=== PATIENT | male | born 1945 | race Caucasian/White ===

== ENCOUNTER 2018-07-17 18:04 | Observation (INO) ==
[2018-07-17] MEDS ORDERED: Ipratropium/Albuterol Neb 3 ML IH ONE (18:47)
[2018-07-17] MEDS ORDERED: methylPREDNISolone 125 MG/2 ML VIAL IVP ONE (18:47)
--- NOTE | 2018-07-17 19:08 | Emergency Department Note ---
Disposition Clinical Impression: Pulmonary fibrosis Disposition: Admitted As Inpatient Condition: Good General Adult HPI - General Chief complaint: ED Shortness of Breath/Dyspnea Stated complaint: SOB Time Seen by Provider: 07/17/18 18:23 - History of Present Illness HPI Narrative: Patient is a 72 year old male with PMH of pulmonary fibrosis with CPAP at home who presents with productive cough of clear sputum and increased shortness of breath for 4 weeks. Patient states that 2 weeks ago he went to urgent care for his symptoms, they diagnosed him with bronchitis and discharged him with steroids, antibiotics and cough syrup. Patient reports that he finished his course of antibiotics and steroids and he does not have improvement in his shortness of breath. Patient admits to audible wheezing and chest discomfort with coughing. Patient took 3 nebulized abuterol treatment today without any relief of symptoms. Patient denies fever, chills, YANG, lower extremity edema, abdominal pain, nausea, vomiting, diarrhea, urinary symptoms. Pain Scale: 3 - Related Data Home Medications Medication Instructions Recorded Confirmed RX: Ascorbate Calcium [Vitamin C] 500 mg PO DAILY 11/13/15 07/17/18 RX: Finasteride [Proscar] 5 mg PO HS 11/13/15 07/17/18 RX: Tamsulosin [Flomax] 0.4 mg PO HS 11/13/15 07/17/18 RX: Lisinopril 2.5 mg PO DAILY 01/22/16 07/17/18 RX: Aspirin [Lo-Dose Aspirin EC] 81 mg PO DAILY 09/03/16 07/17/18 RX: Ubidecarenone [Coq10] 200 mg PO DAILY 09/03/16 07/17/18 RX: Acetylcysteine 600 mg PO TID 07/17/18 07/17/18 [K-Tjyayn-d-Cysteine] RX: Albuterol Sulfate [Ventolin 2 puff IH Q4H PRN 07/17/18 07/17/18 Hfa] RX: Carvedilol [Coreg] 6.25 mg PO BID 07/17/18 07/17/18 RX: Loratadine [Claritin] 10 mg PO DAILY 07/17/18 07/17/18 RX: Multivitamin [One-Daily 1 tab PO DAILY 07/17/18 07/17/18 Multi-Vitamin] RX: Pantoprazole Sodium [Protonix] 40 mg PO DAILY 07/17/18 07/17/18 Previous Rx's Medication Instructions Recorded RX: Ipratropium/Albuterol Neb 3 ml IH Q6H PRN #30 vial.neb 09/01/17 [Duoneb] RX: predniSONE [PredniSONE] 40 mg PO DAILY #20 tablet 07/18/18 levoFLOXacin [Levaquin] 750 mg PO DAILY #4 tablet 07/18/18 Allergies Allergy/AdvReac Type Severity Reaction Status Date / Time No Known Allergies Allergy Verified 07/17/18 18:11 Constitutional: Denies: fever, chills Eyes: Denies: eye pain, vision change ENT ED: Denies: ear pain, congestion Cardiovascular: Reports: dyspnea on exertion. Denies: chest pain, palpitations, syncope Respiratory: Reports: cough, dyspnea, wheezes. Denies: hemoptysis Gastrointestinal: Denies: abdominal pain, nausea, vomiting, diarrhea Genitourinary: Denies: dysuria, hematuria Musculoskeletal: Denies: back pain, neck pain Integumentary: Denies: rash, abrasion Neurological: Denies: headache, weakness, numbness Past Medical History - Past Medical History Medical history: Reports: CHF, coronary artery disease, GERD, kidney stones, other Surgical history: Reports: other Psychiatric history: Reports: no psych history - Social History Smoking Status: Never smoker Smokeless Tobacco Status: No Alcohol use: Reports: none Drug use: Reports: none Physical Exam - General Limitations: no limitations General appearance: alert, other (mild distress due to DARLENE) - Head Head exam: atraumatic, normocephalic, normal inspection - Eye Eye exam: Present: normal appearance, PERRL, EOMI - ENT ENT exam: normal exam, normal oropharynx, mucous membranes moist - Neck Neck exam: Present: normal inspection, full ROM, trachea midline - Chest Chest inspection: Present: normal inspection, symmetric chest wall rise - Respiratory Respiratory exam: Present: wheezes, other (conversational dyspnea, dimished breath sounds throughout, audible wheezing) - Expanded Respiratory Exam Location: wheezes: Left, Right, Upper, Lower - Cardiovascular Cardiovascular exam: Present: regular rate, normal rhythm, normal heart sounds - Abdominal Exam Abdominal exam: Present: soft, Non-Tender. Absent: tenderness, distention, guarding, rebound, rigidity - Extremities Exam Extremities exam: Present: normal inspection, full ROM, normal capillary refill. Absent: tenderness, pedal edema - Back Exam Back exam: Present: normal inspection, full ROM. Absent: tenderness - Neurological Exam Neurological exam: Present: alert, oriented X3 - Psychiatric Psychiatric exam: Present: normal affect, normal mood - Skin Skin exam: Present: warm, dry, intact, normal color Course Vital Signs Temperature 97.9 F 07/17/18 18:12 Pulse Rate 72 07/17/18 18:12 Respiratory Rate 28 07/17/18 18:12 Blood Pressure 144/73 07/17/18 18:12 O2 Sat by Pulse Oximetry 94 07/17/18 18:12 Temperature 97.9 F 07/17/18 18:12 Pulse Rate 72 07/17/18 18:12 Respiratory Rate 28 07/17/18 18:12 Blood Pressure 144/73 07/17/18 18:12 O2 Sat by Pulse Oximetry 94 07/17/18 18:12 Oxygen Delivery Oxygen Delivery Room Air Medical Decision Making - Lab Data Result diagrams: 07/18/18 03:26 07/18/18 03:26
[2018-07-17 19:18] LABS: Hematocrit 45.5 % (37.5-50.1); Hemoglobin 15.6 g/dL (12.9-16.9); Mean Corpuscular HGB Conc 34.3 g/dL (31.6-35.5); Mean Corpuscular Hemoglobin 32.3 pg (28.0-33.3); Mean Corpuscular Volume 94.2 fL (83.0-100.0); Mean Platelet Volume 9.7 fL (9.4-12.4); Platelet Count 186 K/mcL (140-400); Red Blood Count 4.83 M/mcL (4.19-5.50); Red Cell Distribution Width 12.3 % (11.5-14.5)
--- NOTE | 2018-07-17 19:36 | Emergency Department Note ---
Disposition Clinical Impression: Pulmonary fibrosis Disposition: Admitted As Inpatient Condition: Fair Referrals: Karri Lyn MD [Primary Care Provider] - Forms: ED Satisfaction Letter General Adult HPI - General Chief complaint: ED Shortness of Breath/Dyspnea Stated complaint: SOB Time Seen by Provider: 07/17/18 18:23 Source: patient Limitations: no limitations Nursing Notes Reviewed: Yes Vital Signs Reviewed: Yes - History of Present Illness Pain Scale: 3 - Related Data Home Medications Medication Instructions Recorded Confirmed Ascorbate Calcium [Vitamin C] 500 mg PO DAILY 11/13/15 09/03/16 Finasteride [Proscar] 5 mg PO HS 11/13/15 09/03/16 [place]-3/Dha/Epa/Fish Oil [[place] 3 1,000 mg PO DAILY 11/13/15 09/03/16 500 Softgel] Tamsulosin [Flomax] 0.4 mg PO HS 11/13/15 09/03/16 Vitamin E 100 unit PO DAILY 11/13/15 09/03/16 Carvedilol 3.125 mg PO BID 01/22/16 09/03/16 Lisinopril 2.5 mg PO DAILY 01/22/16 09/03/16 Aspirin [Lo-Dose Aspirin EC] 81 mg PO DAILY 09/03/16 09/03/16 Ubidecarenone [Coq10] 200 mg PO DAILY 09/03/16 09/03/16 Pantoprazole 07/02/18 Ventolin Hfa 07/02/18 Previous Rx's Medication Instructions Recorded Ipratropium/Albuterol Neb [Duoneb] 3 ml IH Q6H PRN #30 vial.neb 09/01/17 Nebulizer [Aeroeclipse] 1 each MC PRN PRN #1 each 09/01/17 Allergies Allergy/AdvReac Type Severity Reaction Status Date / Time No Known Allergies Allergy Verified 07/17/18 18:11 Constitutional: Denies: fever, chills Eyes: Denies: eye pain, vision change ENT ED: Denies: ear pain, congestion Cardiovascular: Reports: dyspnea on exertion. Denies: chest pain, palpitations, syncope Respiratory: Reports: cough, dyspnea, wheezes. Denies: hemoptysis Gastrointestinal: Denies: abdominal pain, nausea, vomiting, diarrhea Genitourinary: Denies: dysuria, hematuria Musculoskeletal: Denies: back pain, neck pain Integumentary: Denies: rash, abrasion Neurological: Denies: headache, weakness, numbness Past Medical History - Past Medical History Medical history: Reports: CHF, coronary artery disease, GERD, kidney stones, other Surgical history: Reports: other Psychiatric history: Reports: no psych history - Social History Smoking Status: Never smoker Smokeless Tobacco Status: No Alcohol use: Reports: none Drug use: Reports: none Physical Exam - General Limitations: no limitations General appearance: alert, other (mild distress due to DARLENE) Course Vital Signs Temperature 97.9 F 07/17/18 18:12 Pulse Rate 72 07/17/18 18:12 Respiratory Rate 28 07/17/18 18:12 Blood Pressure 144/73 07/17/18 18:12 O2 Sat by Pulse Oximetry 94 07/17/18 18:12 Temperature 97.9 F 07/17/18 19:04 Pulse Rate 59 07/17/18 20:53 Respiratory Rate 18 07/17/18 20:53 Blood Pressure 138/98 07/17/18 20:53 O2 Sat by Pulse Oximetry 97 07/17/18 20:53 Oxygen Delivery Oxygen Delivery Nasal Cannula Medical Decision Making - Lab Data Result diagrams: 07/17/18 19:02 07/17/18 19:02 Lab Results 07/17/18 07/17/18 07/17/18 Range/Units 19:02 19:02 19:02 WBC 11.5 H (4.3-11.1) K/mcL RBC 4.83 (4.19-5.50) M/mcL Hgb 15.6 (12.9-16.9) g/dL Hct 45.5 (37.5-50.1) % MCV 94.2 (83.0-100.0) fL MCH 32.3 (28.0-33.3) pg MCHC 34.3 (31.6-35.5) g/dL RDW 12.3 (11.5-14.5) % Plt Count 186 (140-400) K/mcL MPV 9.7 (9.4-12.4) fL Seg Neutrophils % 62.0 % Lymphocytes % 12.0 % Monocytes % 18.0 % Eosinophils % 8.0 % Neutrophils # 7.1 (1.6-8.9) K/mcL Lymphocytes # 1.4 (0.6-4.6) K/mcL Monocytes # 2.1 H (0.0-1.3) K/mcL Eosinophils # 0.9 H (0.0-0.6) K/mcL Reactive Lymphocytes Present A (Not Present) Platelet Estimate Normal (Normal) Sodium 141 (136-145) mEq/L Potassium 4.1 (3.5-5.1) mEq/L Chloride 108 H (98-107) mEq/L Carbon Dioxide 24 (23-29) mEq/L BUN 20 (8-23) mg/dL Creatinine 1.04 (0.70-1.30) mg/dL Est GFR ( Amer) > 60 (> 60) Est GFR (Non-Af Amer) > 60 (> 60) BUN/Creatinine Ratio 19 (6-26) Glucose 93 (70-105) mg/dL Calculated Osmolality 294 (280-300) Lactic Acid 1.5 (0.5-2.2) mmol/L Calcium 9.2 (8.6-10.3) mg/dL Troponin I < 0.03 (< 0.04) ng/mL B-Natriuretic Peptide (Less than 100) pg/mL 07/17/18 Range/Units 19:02 WBC (4.3-11.1) K/mcL RBC (4.19-5.50) M/mcL Hgb (12.9-16.9) g/dL Hct (37.5-50.1) % MCV (83.0-100.0) fL MCH (28.0-33.3) pg MCHC (31.6-35.5) g/dL RDW (11.5-14.5) % Plt Count (140-400) K/mcL MPV (9.4-12.4) fL Seg Neutrophils % % Lymphocytes % % Monocytes % % Eosinophils % % Neutrophils # (1.6-8.9) K/mcL Lymphocytes # (0.6-4.6) K/mcL Monocytes # (0.0-1.3) K/mcL Eosinophils # (0.0-0.6) K/mcL Reactive Lymphocytes (Not Present) Platelet Estimate (Normal) Sodium (136-145) mEq/L Potassium (3.5-5.1) mEq/L Chloride (98-107) mEq/L Carbon Dioxide (23-29) mEq/L BUN (8-23) mg/dL Creatinine (0.70-1.30) mg/dL Est GFR ( Amer) (> 60) Est GFR (Non-Af Amer) (> 60) BUN/Creatinine Ratio (6-26) Glucose (70-105) mg/dL Calculated Osmolality (280-300) Lactic Acid (0.5-2.2) mmol/L Calcium (8.6-10.3) mg/dL Troponin I (< 0.04) ng/mL B-Natriuretic Peptide 74 (Less than 100) pg/mL Attestation Statement - Attestation Attestation: I examined this patient and my medical decision-making was reviewed with the Resident Physician. I agree with the documented findings, disposition and treatment plan as described except to the extent set forth below. Patient with a history of pulmonary fibrosis presents to the ED with a chief, shortness of breath. Patient was recently seen in urgent care and discharged home on antibiotic and steroid but continues to get worse. On examination she is tachypneic and visibly dyspneic. Lungs with diffuse wheezing and coarse. Plan. Patient was started on BiPAP. Nebs steroids. Cardiac workup. Patient will be admitted. Patient much better after nebs and steroids. He is able to be removed from the BiPAP. He is admitted for further treatment. Chest X-Ray 07/17/18 18:47 IMPRESSION: Stable portable study. D/ / Akiko Donahue Cha, MD / Akiko Donahue Cha, MD Interpreting Provider: Akiko Donahue Cha, MD
[2018-07-17 19:39] LABS: Eosinophils # 0.9 K/mcL (0.0-0.6); Lymphocytes # 1.4 K/mcL (0.6-4.6); Monocytes # 2.1 K/mcL (0.0-1.3); Neutrophils # 7.1 K/mcL (1.6-8.9); Platelet Estimate Normal (Normal); Reactive Lymphocytes Present (Not Present)
[2018-07-17 19:40] LABS: BUN/Creatinine Ratio 19 (6-26); Blood Urea Nitrogen 20 mg/dL (8-23); Calcium 9.2 mg/dL (8.6-10.3); Carbon Dioxide 24 mEq/L (23-29); Chloride 108 mEq/L (98-107); Glucose 93 mg/dL (70-105); Osmolality,Calculated 294 (280-300); Potassium 4.1 mEq/L (3.5-5.1); Sodium 141 mEq/L (136-145); Troponin I < 0.03 ng/mL (< 0.04); eGFR For Non-African Americans > 60 (> 60)
--- NOTE | 2018-07-17 20:37 | Emergency Department Note ---
Disposition Clinical Impression: Pulmonary fibrosis Disposition: Admitted As Inpatient Condition: Fair Referrals: Karri Lyn MD [Primary Care Provider] - Forms: ED Satisfaction Letter Time of Disposition: 20:37 SOB HPI - General Chief Complaint: ED Shortness of Breath/Dyspnea Stated Complaint: SOB Time Seen by Provider: 07/17/18 18:23 Source: patient Mode of arrival: ambulatory Limitations: no limitations Nursing Notes Reviewed: Yes Vital Signs Reviewed: Yes - Related Data Home Medications Medication Instructions Recorded Confirmed Ascorbate Calcium [Vitamin C] 500 mg PO DAILY 11/13/15 09/03/16 Finasteride [Proscar] 5 mg PO HS 11/13/15 09/03/16 [place]-3/Dha/Epa/Fish Oil [[place] 3 1,000 mg PO DAILY 11/13/15 09/03/16 500 Softgel] Tamsulosin [Flomax] 0.4 mg PO HS 11/13/15 09/03/16 Vitamin E 100 unit PO DAILY 11/13/15 09/03/16 Carvedilol 3.125 mg PO BID 01/22/16 09/03/16 Lisinopril 2.5 mg PO DAILY 01/22/16 09/03/16 Aspirin [Lo-Dose Aspirin EC] 81 mg PO DAILY 09/03/16 09/03/16 Ubidecarenone [Coq10] 200 mg PO DAILY 09/03/16 09/03/16 Pantoprazole 07/02/18 Ventolin Hfa 07/02/18 Previous Rx's Medication Instructions Recorded Ipratropium/Albuterol Neb [Duoneb] 3 ml IH Q6H PRN #30 vial.neb 09/01/17 Nebulizer [Aeroeclipse] 1 each MC PRN PRN #1 each 09/01/17 Allergies Allergy/AdvReac Type Severity Reaction Status Date / Time No Known Allergies Allergy Verified 07/17/18 18:11 Constitutional: Denies: fever, chills Eyes: Denies: eye pain, vision change ENT ED: Denies: ear pain, congestion Cardiovascular: Reports: dyspnea on exertion. Denies: chest pain, palpitations, syncope Respiratory: Reports: cough, dyspnea, wheezes. Denies: hemoptysis Gastrointestinal: Denies: abdominal pain, nausea, vomiting, diarrhea Genitourinary: Denies: dysuria, hematuria Musculoskeletal: Denies: back pain, neck pain Integumentary: Denies: rash, abrasion Neurological: Denies: headache, weakness, numbness Past Medical History - Past Medical History Medical history: Reports: CHF, coronary artery disease, GERD, kidney stones, other Surgical history: Reports: other Psychiatric history: Reports: no psych history - Social History Smoking Status: Never smoker Smokeless Tobacco Status: No Alcohol use: Reports: none Drug use: Reports: none Physical Exam - General Limitations: no limitations General appearance: alert, other (mild distress due to DARLENE) Course Course Narrative: I have personally seen and evaluated the patient along with the Medical Student. I have reviewed and confirmed the history of present illness, review of systems, family, medical, and surgical history and agree with the documentation except as documented below. HPI/ROS: Briefly, patient with history of pulmonary fibrosis. Follow up with chalino bolivar here presenting with shortness of breath. Physical exam: CONSTITUTIONAL: [Ill appearing in acute respiratory distress] SKIN: [Warm, dry, and intact without rash] EYES: [extraocular movements are grossly intact, clear conjunctiva] HENT: [Normocephalic, atraumatic, moist mucus membranes] NECK: [no obvious swelling, normal range of motion] PULMONARY: [Moderate respiratory distress, retractions, abdominal muscle use, significant wheezing throughout all lung pearson with decreased aeration, bilateral bases CARDIOVASCULAR: [regular rate, distal extremities are warm and well perfused] GASTROINSTESTINAL: [nondistended, non-tender] GENITOURINARY: [deferred] NEUROLOGIC: [Conversationally dyspneic, moves all extremities] MUSCULOSKELETAL: [no gross deformities, atraumatic] PSYCHIATRIC: [normal mood and affect] - Reevaluation(s) Reevaluation #1: Patient presenting with a fairly significant pulmonary fibrosis exacerbation. He took 3 albuterol treatments prior to arrival without any relief. We will place patient on BiPAP, and give him 3 duo nebs and IV steroids. We will check labs, EKG and chest x-ray. Patient is significantly better on BiPAP. Duo nebs that seemed to help. He is no longer wheezing and his respiratory status is almost back to baseline. He is requesting that we take him off BiPAP, which I think is reasonable at this time. We did discuss overnight admission and observation to avoid any rebound. Intubating would be significant really detrimental to the patient and would be very difficult to wean off the vent and he was agreeable with staying to prevent any worsening respiratory status and was okay titrating BiPAP on and off as needed. Vital Signs Temperature 97.9 F 07/17/18 18:12 Pulse Rate 72 07/17/18 18:12 Respiratory Rate 28 07/17/18 18:12 Blood Pressure 144/73 07/17/18 18:12 O2 Sat by Pulse Oximetry 94 07/17/18 18:12 Temperature 97.9 F 07/17/18 19:04 Pulse Rate 69 07/17/18 19:04 Respiratory Rate 20 07/17/18 19:09 Blood Pressure 144/73 07/17/18 19:09 O2 Sat by Pulse Oximetry 94 07/17/18 19:09 Oxygen Delivery Oxygen Delivery Bipap Shortness of Breath/Dyspnea - Medical Records Medical records reviewed: Yes I reviewed the patient's medical records. - Lab Data Lab results reviewed: Yes I reviewed the patient's lab results. Result diagrams: 07/17/18 19:02 07/17/18 19:02 Lab Results 07/17/18 07/17/18 07/17/18 Range/Units 19:02 19:02 19:02 WBC 11.5 H (4.3-11.1) K/mcL RBC 4.83 (4.19-5.50) M/mcL Hgb 15.6 (12.9-16.9) g/dL Hct 45.5 (37.5-50.1) % MCV 94.2 (83.0-100.0) fL MCH 32.3 (28.0-33.3) pg MCHC 34.3 (31.6-35.5) g/dL RDW 12.3 (11.5-14.5) % Plt Count 186 (140-400) K/mcL MPV 9.7 (9.4-12.4) fL Seg Neutrophils % 62.0 % Lymphocytes % 12.0 % Monocytes % 18.0 % Eosinophils % 8.0 % Neutrophils # 7.1 (1.6-8.9) K/mcL Lymphocytes # 1.4 (0.6-4.6) K/mcL Monocytes # 2.1 H (0.0-1.3) K/mcL Eosinophils # 0.9 H (0.0-0.6) K/mcL Reactive Lymphocytes Present A (Not Present) Platelet Estimate Normal (Normal) Sodium 141 (136-145) mEq/L Potassium 4.1 (3.5-5.1) mEq/L Chloride 108 H (98-107) mEq/L Carbon Dioxide 24 (23-29) mEq/L BUN 20 (8-23) mg/dL Creatinine 1.04 (0.70-1.30) mg/dL Est GFR ( Amer) > 60 (> 60) Est GFR (Non-Af Amer) > 60 (> 60) BUN/Creatinine Ratio 19 (6-26) Glucose 93 (70-105) mg/dL Calculated Osmolality 294 (280-300) Lactic Acid 1.5 (0.5-2.2) mmol/L Calcium 9.2 (8.6-10.3) mg/dL Troponin I < 0.03 (< 0.04) ng/mL B-Natriuretic Peptide (Less than 100) pg/mL 07/17/18 Range/Units 19:02 WBC (4.3-11.1) K/mcL RBC (4.19-5.50) M/mcL Hgb (12.9-16.9) g/dL Hct (37.5-50.1) % MCV (83.0-100.0) fL MCH (28.0-33.3) pg MCHC (31.6-35.5) g/dL RDW (11.5-14.5) % Plt Count (140-400) K/mcL MPV (9.4-12.4) fL Seg Neutrophils % % Lymphocytes % % Monocytes % % Eosinophils % % Neutrophils # (1.6-8.9) K/mcL Lymphocytes # (0.6-4.6) K/mcL Monocytes # (0.0-1.3) K/mcL Eosinophils # (0.0-0.6) K/mcL Reactive Lymphocytes (Not Present) Platelet Estimate (Normal) Sodium (136-145) mEq/L Potassium (3.5-5.1) mEq/L Chloride (98-107) mEq/L Carbon Dioxide (23-29) mEq/L BUN (8-23) mg/dL Creatinine (0.70-1.30) mg/dL Est GFR ( Amer) (> 60) Est GFR (Non-Af Amer) (> 60) BUN/Creatinine Ratio (6-26) Glucose (70-105) mg/dL Calculated Osmolality (280-300) Lactic Acid (0.5-2.2) mmol/L Calcium (8.6-10.3) mg/dL Troponin I (< 0.04) ng/mL B-Natriuretic Peptide 74 (Less than 100) pg/mL - Radiology Data Radiology results reviewed: Yes I reviewed the patient's radiology results. - EKG Data EKG attestation: Yes I reviewed and interpreted this EKG. EKG results narrative: Sinus rhythm, rate 69, occasional PVCs, left bundle with no acute ischemic changes.
[2018-07-17 21:55] LABS: Bilirubin,Urine Negative (Negative); Blood,Urine Negative (Negative); Clarity,Urine Clear (Clear); Color,Urine Yellow (Yellow); Glucose,Urine (UA) Normal (Normal); Ketones,Urine Trace mg/dL (Negative); Leukocyte Esterase,Urine Negative (Negative); Nitrite,Urine Negative (Negative); Protein,Urine Negative (Neg-Trace); Specific Gravity,Urine 1.011 (1.010-1.025); Urobilinogen,Urine Normal (Normal)
[2018-07-18] MEDS ORDERED: Naloxone 0.4 MG/ML INJ IVP PRN (03:12)
[2018-07-18] MEDS ORDERED: Albuterol 2.5 MG/3 ML NEBULIZER IH PRN (03:13)
[2018-07-18] MEDS: Ipratropium/Albuterol Neb 3 ML IH SCH ×2 (04:04→11:02)
[2018-07-18 04:09] LABS: Hematocrit 46.3 % (37.5-50.1); Hemoglobin 15.7 g/dL (12.9-16.9); Mean Corpuscular HGB Conc 33.9 g/dL (31.6-35.5); Mean Corpuscular Hemoglobin 31.8 pg (28.0-33.3); Mean Corpuscular Volume 93.9 fL (83.0-100.0); Mean Platelet Volume 9.9 fL (9.4-12.4); Platelet Count 189 K/mcL (140-400); Red Blood Count 4.93 M/mcL (4.19-5.50); Red Cell Distribution Width 12.1 % (11.5-14.5)
[2018-07-18 04:27] LABS: BUN/Creatinine Ratio 19 (6-26); Blood Urea Nitrogen 20 mg/dL (8-23); Calcium 9.4 mg/dL (8.6-10.3); Carbon Dioxide 23 mEq/L (23-29); Chloride 107 mEq/L (98-107); Glucose 184 mg/dL (70-105); Osmolality,Calculated 295 (280-300); Potassium 4.2 mEq/L (3.5-5.1); Sodium 139 mEq/L (136-145); eGFR For Non-African Americans > 60 (> 60)
--- NOTE | 2018-07-18 06:59 | Internal Med History&Physical ---
Date of Encounter: 07/18/18 Time of Encounter: 02:22 Internal Medicine - H&P: HPI Chief complaint: Acute hypoxic respiratory failure Admitted From: Emergency Dept Plans for Post Hospital Care: Home History of present illness: Mr. Hutchins is a 72 year old male Patient presented to the emergency room with a 4-5 week history of shortness of breath with exertion which has progressively worsened the last few days. He sa ys he has hard time talking without getting short of breath and coughing. 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 He was diagnosed with pulmonary fibrosis last year and follows up with pulmonology here at [place]. 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 He denies productive cough but does state he feels like there is mucus in his throat. He uses CPAP at night but does not use oxygen during the day. He tried breathing treatments at home but they did not work. In the emergency room patient's CBC and BMP were within normal limits. Patient's troponin was undetectable, BNP was 74. Urinalysis was within normal limits. Chest x-ray showed lower lung scarring but was stable compared to previous x-rays. He was given DuoNeb treatments as well as IV steroids. He was started on BiPAP in the emergency room, which showed improvements in his symptoms. It was felt that patient would benefit from observation in the hospital overnight to prevent worsening symptoms, and the patient agreed. He was sent to the medical floor for further management. Upon arrival to the medical floor patient remained off BiPAP and sustained oxy[place] in the mid 90s with nasal cannula. His some improvement in his symptoms, but is still short of breath with conversation. He denies nausea, vomiting, chest pain, diarrhea and constipation. Past Med Surg Social Fam HX - Past Medical History Medical history: CHF, coronary artery disease, GERD, kidney stones, other Additional medical history: pulmonary fibrosis Psychiatric history: no psych history - Past Surgical History Surgical History: other Additional surgical history: cleft palate repair, heart cath, colonoscopy, sinus surgery - Social History Smoking Status: Never smoker Smokeless Tobacco Status: No Alcohol use: none Drug use: none - Family History Mother Hx Family Respiratory Disorders: Yes Father Hx Family Neurologic Disorders: Yes Internal Medicine - H&P: Meds Ascorbate Calcium [Vitamin C] 500 mg PO DAILY 11/13/15 [History] Finasteride [Proscar] 5 mg PO HS 11/13/15 [History] Tamsulosin [Flomax] 0.4 mg PO HS 11/13/15 [History] Lisinopril 2.5 mg PO DAILY 01/22/16 [History] Aspirin [Lo-Dose Aspirin EC] 81 mg PO DAILY 09/03/16 [History] Ubidecarenone [Coq10] 200 mg PO DAILY 09/03/16 [History] Ipratropium/Albuterol Neb [Duoneb] 3 ml IH Q6H PRN #30 vial.neb 09/01/17 [Rx] Acetylcysteine [K-Obauqt-l-Cysteine] 600 mg PO TID 07/17/18 [History] Albuterol Sulfate [Ventolin Hfa] 2 puff IH Q4H PRN 07/17/18 [History] Carvedilol [Coreg] 6.25 mg PO BID 07/17/18 [History] Loratadine [Claritin] 10 mg PO DAILY 07/17/18 [History] Multivitamin [One-Daily Multi-Vitamin] 1 tab PO DAILY 07/17/18 [History] Pantoprazole Sodium [Protonix] 40 mg PO DAILY 07/17/18 [History] Allergy/AdvReac Type Severity Reaction Status Date / Time No Known Allergies Allergy Verified 07/17/18 18:11 All Systems PM: A 10-system review of systems was performed and is negative for pertinent findings except as documented above in the HPI. - Constitutional Vitals: Temp Pulse Resp BP Pulse Ox 97.9 F 88 20 125/80 93 07/18/18 03:32 07/18/18 03:32 07/18/18 04:04 07/18/18 03:32 07/18/18 04:04 General appearance: Present: cooperative, A&O X 3, pleasant, no acute distress, answers questions appropriately Exam: As above - Head Head exam: Present: normal inspection - Eye Eye exam: Present: EOMI, normal appearance - Respiratory Respiratory exam: Present: respiratory distress, wheezes. Absent: decreased breath sounds, rales, rhonchi - Cardiovascular Cardiovascular exam: Present: RRR. Absent: diastolic murmur, systolic murmur - GI/Abdominal GI/Abdominal exam: Present: normal bowel sounds, soft. Absent: tenderness - Extremities Exam Extremities exam: Present: warm, radial pulses palpable and symmetrical. Absent: calf tenderness, pedal edema, tenderness - Neurological Exam Neurological exam: Present: no focal deficits, strengths equal and symetr throughout. Absent: motor sensory deficit, facial droop, speech deficit - Skin Skin exam: Present: dry, normal color, warm Internal Med - H&P Results - Labs CBC & Chem 7: 07/18/18 03:26 07/18/18 03:26 Labs: Short CBC 07/17/18 07/18/18 Range/Units 19:02 03:26 WBC 11.5 H 8.2 (4.3-11.1) K/mcL Hgb 15.6 15.7 (12.9-16.9) g/dL Hct 45.5 46.3 (37.5-50.1) % Plt Count 186 189 (140-400) K/mcL Neutrophils # 7.1 (1.6-8.9) K/mcL BMP 07/17/18 07/18/18 19:02 03:26 Sodium 141 139 Potassium 4.1 4.2 Chloride 108 H 107 Carbon Dioxide 24 23 BUN 20 20 Creatinine 1.04 1.04 Glucose 93 184 H Calcium 9.2 9.4 Cardiac Enzymes 07/17/18 Range/Units 19:02 Troponin I < 0.03 (< 0.04) ng/mL Urine 07/17/18 Range/Units 21:44 Urine Color Yellow (Yellow) Urine Clarity Clear (Clear) Urine pH 7.0 (5.0-8.0) pH Units Ur Specific [place] 1.011 (1.010-1.025) Urine Protein Negative (Neg-Trace) mg/dL Urine Glucose (UA) Normal (Normal) mg/dL - Impressions ITS Impressions Chest X-Ray 07/17/18 18:47 IMPRESSION: Stable portable study. D/ / Akiko Donahue Cha, MD / Akiko Donahue Cha, MD Interpreting Provider: Akiko Donahue Cha, MD - Assessment and plan (1) Acute respiratory failure with hypoxia Current Visit: Yes Status: Acute Assessment and plan: Secondary to pulmonary fibrosis. Patient follows with pulmonology outpatient. 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 Continue to monitor Patient follows up with pulmonology outpatient (3) History of hypertension Current Visit: Yes Status: Acute Assessment and plan: Patient has history of hypertension, takes lisinopril at home. Continue to monitor blood pressure (4) DVT prophylaxis Current Visit: Yes Status: Acute Assessment and plan: Heparin subcutaneous - Time Spent With Patient Total time spent is greater than 50% in coordination of care (as documented) at patient's floor/unit and/or counseling patient: Greater than 35 minutes
[2018-07-18 07:30] VITALS: BP 129/80
[2018-07-18] MEDS ORDERED: Ubidecarenone [Coq10] 200 MG PO SCH (09:00)
[2018-07-18] MEDS ORDERED: Aspirin Enteric Coated 81 MG Tablet PO SCH (09:00)
[2018-07-18] MEDS ORDERED: *HR* Acetylcysteine 20% 600 MG/3 ML ORAL SYRINGE PO SCH (09:00)
[2018-07-18] MEDS ORDERED: Loratadine 10 MG TABLET PO SCH (09:00)
[2018-07-18] MEDS ORDERED: predniSONE 20 MG TABLET PO SCH (09:00)
[2018-07-18] MEDS ORDERED: Multivit/Ca/Min/Fe/FA 1 TAB TABLET PO SCH (09:00)
[2018-07-18] MEDS ORDERED: Ascorbic Acid 500 MG TABLET PO SCH (09:00)
--- NOTE | 2018-07-18 10:11 | Internal Med Progress Note ---
Hospitalist Progress Note - Encounter Date of Encounter: 07/18/18 Time of Encounter: 10:08 - Subjective Interval History: Seen and examined at the bedside Admitted to obs for Pulmonary fibrosis flare Still requiring O2 Will wean off/walk for qualification He feels improved, still coughing, but asking to be discharged home - Exam Vitals: Temp Pulse Resp BP Pulse Ox 97.7 F 65 20 129/80 92 07/18/18 07:24 07/18/18 08:41 07/18/18 07:24 07/18/18 07:24 07/18/18 08:41 Exam: VSS Gen - Awake, alert, oriented x 3, no acute distress HEENT - NCAT, PERRLA, EOMI, hearing grossly intact, oropharynx benign Heart -S1, S2, RRR, no m/g/r Resp - Inspiratory crackles, wheezing bilaterally GI - Soft, not tender, no palpably enlarged organs, BS present in al quadrants Back: NO CVA tenderness Skin - Warm, dry, no rashes/lesions/ulcers Psych -Appropriate affect Extremities: Normal inspection, no pedal edema - Assessment and Plan (1) Acute respiratory failure with hypoxia Current Visit: Yes Status: Acute (2) DVT prophylaxis Current Visit: Yes Status: Acute (3) History of hypertension Current Visit: Yes Status: Acute (4) Pulmonary fibrosis Current Visit: Yes Status: Acute - Time Spent with Patient Total time spent is greater than 50% in coordination of care (as documented) at patient's floor/unit and/or counseling patient: Internal Medicine: Result - Labs CBC & Chem 7: 07/18/18 03:26 07/18/18 03:26 Labs: Short CBC 07/17/18 07/18/18 Range/Units 19:02 03:26 WBC 11.5 H 8.2 (4.3-11.1) K/mcL Hgb 15.6 15.7 (12.9-16.9) g/dL Hct 45.5 46.3 (37.5-50.1) % Plt Count 186 189 (140-400) K/mcL Neutrophils # 7.1 (1.6-8.9) K/mcL BMP 07/17/18 07/18/18 19:02 03:26 Sodium 141 139 Potassium 4.1 4.2 Chloride 108 H 107 Carbon Dioxide 24 23 BUN 20 20 Creatinine 1.04 1.04 Glucose 93 184 H Calcium 9.2 9.4 Cardiac Enzymes 07/17/18 Range/Units 19:02 Troponin I < 0.03 (< 0.04) ng/mL Urine 07/17/18 Range/Units 21:44 Urine Color Yellow (Yellow) Urine Clarity Clear (Clear) Urine pH 7.0 (5.0-8.0) pH Units Ur Specific [place] 1.011 (1.010-1.025) Urine Protein Negative (Neg-Trace) mg/dL Urine Glucose (UA) Normal (Normal) mg/dL - Impressions Impressions Chest X-Ray 07/17/18 18:47 IMPRESSION: Stable portable study. D/ / Akiko Donahue Cha, MD / Akiko Donahue Cha, MD Interpreting Provider: Akiko Donahue Cha, MD Consult Discharge Plan - Plan Referrals: Karri Lyn MD [Primary Care Provider] -
--- NOTE | 2018-07-18 10:29 | Discharge Summary ---
- NOTES TO OUTPATIENT PROVIDER Notes to Outpatient Provider: Patient was admitted for hypoxic resp failure , and Pulm fibrosis flare. He was ambulated and did not qualify for O2. He is discharged on steroid taper and antibiotics. Follow up with PCP and Pulm Orders not resulted at time of discharge: Pending orders 07/17/18 18:47 ECG 12 lead ECG [ECG] Stat Date of Encounter: 07/18/18 Time of Encounter: 10:28 - Discharge Diagnosis (1) Acute respiratory failure with hypoxia Priority: Primary Status: Resolved (2) DVT prophylaxis Priority: Primary Status: Resolved (3) History of hypertension Priority: Secondary Status: Chronic (4) Pulmonary fibrosis Priority: Primary Status: Acute Hospital course: Mr. Hutchins is a 72 year old male with PMH of HTN, CAD, Pulm fibrosis who follows up here with Pulm, presented to the emergency room with a 4-5 week history of shortness of breath with exertion which has progressively worsened the last few days. He says he has hard time talking without getting short of breath and coughing. In the emergency room patient's CBC and BMP were within normal limits. Patient's troponin was undetectable, BNP was 74. Urinalysis was within normal limits. Chest x-ray showed lower lung scarring but was stable compared to previous x-rays. He was given DuoNeb treatments as well as IV steroids. He was started on BiPAP in the emergency room, which showed improvements in his symptoms. It was felt that patient would benefit from observation in the hospital overnight to prevent worsening symptoms, and the patient agreed. He was sent to the medical floor for further management. He was seen and examined today 07/18, off O2 saturating 94% at rest, continues to have mild cough and wheezing but feels generally improved He was ambulated and did not qualify for O2. He is discharged on steroid taper and antibiotics. Follow up with PCP and Pulm Plan of care discussed with family and patient, verbalized understanding Follow up with PCP and Pulm Discharge discussed with: patient, family, nurse - Time Spent with Patient Total time spent providing and/or coordinating discharge services: Less than 30 minutes - Discharge Medications Prescriptions: levoFLOXacin [Levaquin] 750 mg PO DAILY #4 tablet predniSONE [PredniSONE] 40 mg PO DAILY #20 tablet Home Medications: Ascorbate Calcium [Vitamin C] 500 mg PO DAILY 11/13/15 [History] Finasteride [Proscar] 5 mg PO HS 11/13/15 [History] Tamsulosin [Flomax] 0.4 mg PO HS 11/13/15 [History] Lisinopril 2.5 mg PO DAILY 01/22/16 [History] Aspirin [Lo-Dose Aspirin EC] 81 mg PO DAILY 09/03/16 [History] Ubidecarenone [Coq10] 200 mg PO DAILY 09/03/16 [History] Ipratropium/Albuterol Neb [Duoneb] 3 ml IH Q6H PRN #30 vial.neb 09/01/17 [Rx] Acetylcysteine [O-Orinyi-g-Cysteine] 600 mg PO TID 07/17/18 [History] Albuterol Sulfate [Ventolin Hfa] 2 puff IH Q4H PRN 07/17/18 [History] Carvedilol [Coreg] 6.25 mg PO BID 07/17/18 [History] Loratadine [Claritin] 10 mg PO DAILY 07/17/18 [History] Multivitamin [One-Daily Multi-Vitamin] 1 tab PO DAILY 07/17/18 [History] Pantoprazole Sodium [Protonix] 40 mg PO DAILY 07/17/18 [History] levoFLOXacin [Levaquin] 750 mg PO DAILY #4 tablet 07/18/18 [Rx] predniSONE [PredniSONE] 40 mg PO DAILY #20 tablet 07/18/18 [Rx] Allergies/Adverse Reactions: Allergy/AdvReac Type Severity Reaction Status Date / Time No Known Allergies Allergy Verified 07/17/18 18:11 Date of admission: 07/17/18 21:45 Primary care physician: Karri Lyn MD Consults: 07/18/18 03:13 Consult to Nurse Navigator [CONS] Routine Comment: Discharging clinician: Demario Murguia Anticipated date of discharge: 07/18/18 - Constitutional Vitals: Temp Pulse Resp BP Pulse Ox 97.7 F 65 20 129/80 92 07/18/18 07:24 07/18/18 08:41 07/18/18 07:24 07/18/18 07:24 07/18/18 08:41 General appearance: Present: cooperative, A&O X 3, pleasant, no acute distress, answers questions appropriately Exam: VSS Gen - Awake, alert, oriented x 3, no acute distress HEENT - NCAT, PERRLA, EOMI, hearing grossly intact, oropharynx benign Heart -S1, S2, RRR, no m/g/r Resp - Inspiratory crackles, wheezing bilaterally GI - Soft, not tender, no palpably enlarged organs, BS present in al quadrants Back: NO CVA tenderness Skin - Warm, dry, no rashes/lesions/ulcers Psych -Appropriate affect Extremities: Normal inspection, no pedal edema - Patient Status Disposition: Home, Self-Care Condition: Good Functional capacity at discharge: independent ambulation Overall status at discharge: patient is back to baseline - Discharge Instructions Instructions: Prednisone (By mouth), Levofloxacin (By mouth), Acute Respiratory Distress Syndrome (DC) Follow Up With: Karri Lyn MD [Primary Care Provider] - (WEB REQUEST MADE ON 07-18-18 DR. BOYD OFFICE WILL CALL YOU WITH AN APPOINTMENT. ) Additional Instructions: ACTIVITY AND DIET TOLERATED. WEB REQUEST MADE FOR PCP- DR. BOYD OFFICE SHOULD CALL YOU WITH AN APPOINTMENT. PLEASE FINISH SCRIPTS. - Diet and Activity Activity: resume usual activities as tolerated Diet: low salt diet
[2018-07-18] MEDS ORDERED: levoFLOXacin 500 MG TABLET PO SCH (10:45)
[2018-07-18] MEDS ORDERED: *HR* Heparin 5,000 UNIT/ML VIAL SQ SCH (18:00)
[2018-07-18] MEDS ORDERED: Finasteride 5 MG TABLET PO SCH (21:00)
--- NOTE | 2018-07-20 13:08 | Electrocardiograph Report ---
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
== END 2018-07-18 12:41 | disposition home or self-care (01) ==
LOC: EMEROOARM 18:04 → 2NNU 18:04 → SUATTDRO 21:45 → 2NNU 22:27
PROVIDERS: ADMIT Family Medicine; ATTEND Internal Medicine